=== PATIENT | male | born 1960 | race Caucasian/White ===

== ENCOUNTER 2018-09-26 17:18 | Emergency (ER) | payer SELFPAY ==
[2018-09-26 17:30] VITALS: BP 152/88; PULSE 32; RESP 18; TEMP 36.6; O2SAT 96; BMI 25.9
--- NOTE | 2018-09-26 17:39 | DI.CT.S_ITS ---
PROCEDURE: CT HEAD/BRAIN WO CON INDICATIONS: Left sided weakness TECHNIQUE: Noncontrast 4.5 mm thick angled axial sections acquired from the foramen magnum to the vertex, with coronal and sagittal reformats. For radiation dose reduction, the following was used: automated exposure control, adjustment of mA and/or kV according to patient size. COMPARISON: None. FINDINGS: Image quality: Excellent. CSF spaces: Basal cisterns are patent. No extra-axial fluid collections. The ventricles are symmetric in size and shape. Brain: No intracranial bleeds or masses. There is cerebral volume loss for age, with resultant ventricular and sulcal prominence. There are periventricular and deep white matter chronic small vessel ischemic changes. There is intracranial internal carotid artery atherosclerosis. Skull and face: Calvarium and visualized facial bones appear intact, without suspicious lesions. Sinuses: Visualized sinuses and mastoids are clear. IMPRESSION: Normal intracranial study for age, without findings of acute hemorrhage or bahman CT findings of early infarction. If there is strong clinical suspicion for an acute stroke, please consider an MRI for further evaluation, as it is more sensitive (assuming that there is no contraindication to MRI). Dictated by: Sukhjinder Dean M.D. on 09/26/2018 at 17:02 Approved by: Sukhjinder Dean M.D. on 09/26/2018 at 17:03
[2018-09-26 17:54] LABS: Prothrombin Time 11.9 SECONDS (10.1-12.7)
[2018-09-26] MEDS: SODIUM CHLORIDE 0.9% 1,000 ML 1000 ML IV (17:54)
[2018-09-26 17:57] LABS: Add Manual Diff / Slide Review NO; Basophils Absolute Auto 0 /uL (0-100); Basophils Percent Auto 0.8 % (0-2); Eosinophils Absolute Auto 100 /uL (0-450); Eosinophils Percent Auto 2.1 % (2-4); Hematocrit 41.4 % (41-53); Hemoglobin 14.2 g/dL (13.5-17.5); Lymphocytes Absolute Auto 1300 /uL (1100-4500); Lymphocytes Percent Auto 26.3 % (25-40); Mean Corpuscular HGB Conc 34.4 % (30-36); Mean Corpuscular Hemoglobin 31.3 PG (26-34); Monocytes Absolute Auto 500 /uL (0-900); Monocytes Percent Auto 9.1 % (3-14); Neutrophils Absolute Auto 3100 /uL (1500-7000); Neutrophils Percent Auto 61.7 % (50-75); Platelet Count 234 X10^3/uL (150-400); Red Blood Cell Count 4.54 X10^6/uL (4.5-5.9); Red Cell Distribution Width 13.8 % (11.6-14.8)
--- NOTE | 2018-09-26 17:57 | PC.NURSE ---
Patient has had 2 separate episodes of bradycardia, both accompanied by lightheadness and heart rate in the 20s. Returned to 60s-70s bpm after approx 10 seconds and symptoms resolved. Provider notified and cardiac monitoring strip obtained.
[2018-09-26 17:58] LABS: Alanine Aminotransferase 37 IU/L (21-72); Albumin Globulin Ratio 1.5 (1.0-2.8); Alkaline Phosphatase 80 U/L (38-126); Aspartate Aminotransferase 33 IU/L (17-59); BUN Creatinine Ratio 13.1 (6-22); Bilirubin Total 0.8 mg/dL (0.2-1.3); Blood Urea Nitrogen 17 mg/dL (9-20); Carbon Dioxide 29 mmol/L (22-32); Chloride 104 mmol/L (98-107); Estimated Glomerular Filt Rate 56.3 mL/min (>60); Globulin 2.7 g/dL (1.7-4.1); Glucose 131 mg/dL (80-110); HEMOLYSIS < 15 (0-50); Potassium 3.8 mmol/L (3.4-5.1); Sodium 138 mmol/L (137-145); Total Protein 6.7 g/dL (6.3-8.2)
[2018-09-26 18:00] VITALS: BP 148/84; PULSE 81; RESP 14; O2SAT 97
--- NOTE | 2018-09-26 18:26 | ED.NEUROSD ---
HPI - Neuro Symptoms/Deficit General Chief Complaint: Neuro Symptoms/Deficit Stated Complaint: weakness on his left side Time Seen by Provider: 09/26/18 17:35 Source: patient and family Mode of arrival: ambulatory Limitations: no limitations History of Present Illness HPI Narrative: 58-year-old male nonsmoker presents with a friend and a chief complaint of left-sided numbness and tingling for 1 hour prior to arrival. He denies any blurred vision or trouble with speech. He states that maybe more than a numbness his arm just felt weird. He presented here the under those circumstances. He denies any chest pain, palpitations or increased fatigue as of late. He denies any medications or herbal supplements. He denies street drugs or smoking. He has never had a similar set of circumstances before today. On Anticoagulants: No Related Data Home Medications Medication Instructions Recorded Confirmed No Known Home Medications 09/26/18 09/26/18 Allergies Allergy/AdvReac Type Severity Reaction Status Date / Time No Known Drug Allergies Allergy Verified 09/26/18 17:36 Review of Systems Constitutional Denies chills, Denies fever(s), Denies lethargy and Denies weakness Eyes Denies change in vision, Denies eye discharge, Denies irritation and Denies loss of vision ENT Ears, Nose, Mouth, and Throat: Denies change in voice, Denies neck pain and Denies sore throat Cardiovascular Denies chest pain, Denies irregular heart rhythm, Reports lightheadedness, Denies palpitations, Denies dyspnea, Denies dyspnea on exertion and Denies orthopnea Respiratory Denies cough, Denies dyspnea, Denies dyspnea on exertion and Denies wheezing Gastrointestinal Gastrointestinal: Denies abdominal pain, Denies change in bowel habits, Denies diarrhea, Denies nausea and Denies vomiting Genitourinary Denies hematuria, Denies flank pain, Denies urinary incontinence and Denies urinary urgency Musculoskeletal Denies neck pain Integumentary/Breasts Denies pruritus, Denies erythema, Denies rash and Denies wounds Neurologic Denies confusion, Denies loss of vision and Denies weakness Psychiatric Denies anxiety, Denies confusion, Denies depression, Denies homicidal ideation and Denies suicidal ideation Endocrine Denies palpitations Hematologic/Lymphatic Denies easy bruising Allergic/Immunologic Denies wheezing [facility] Social History Smoking Status: Never smoker Social History Smoking Status: Never smoker Exam Narrative Exam Narrative: GENERAL: This is a well-nourished, well-developed patient, in mild distress. HEAD: Atraumatic. Normocephalic. No temporal or scalp tenderness. EYES: Pupils equal round and reactive. Extraocular motions intact. No scleral icterus. No injection or drainage. ENT: Nose without bleeding, purulent drainage or septal hematoma. Throat without erythema, tonsillar hypertrophy or exudate. Uvula midline. Airway patent. NECK: Trachea midline. No JVD or lymphadenopathy. Supple, nontender, no meningeal signs. CARDIOVASCULAR: Regular rate and rhythm without murmurs, gallops, or rubs. RESPIRATORY: Clear to auscultation. Breath sounds equal bilaterally. No wheezes, rales, or rhonchi. GASTROINTESTINAL: Abdomen soft, non-tender, nondistended. No hepato-splenomegaly, or palpable masses. No guarding. EXTREMITIES: No clubbing, cyanosis, or edema. No joint tenderness, effusion, or edema noted. BACK: Nontender without deformity or crepitance. No flank tenderness. NEURO: AOx3. SKIN: No rash or erythema. NIH Stroke Scale 1a. LOC: Patient is alert and keenly responsive (0) 1b. LOC Questions: Patient answers both LOC questions accurately (0) 1c. LOC Commands: Patient performs both tasks correctly (0) 2. Best Gaze: Normal (0) 3. Visual: No visual loss (0) 4. Facial palsy: Normal symmetrical movements (0) 5. Motor arm: No drift (0) 6. Motor leg: No drift (0) 7. Limb ataxia: Absent (0) 8. Sensory: Normal (0) 9. Best language: No aphasia; normal (0) 10. Dysarthria: Normal (0) 11. Extinction and inattention: No abnormality (0) NIHSS: 0 Initial Vital Signs Initial Vital Signs: Vital Signs Temperature 97.8 F 09/26/18 17:30 Pulse Rate 32 L 09/26/18 17:30 Respiratory Rate 18 09/26/18 17:30 Blood Pressure 152/88 H 09/26/18 17:30 Pulse Oximetry 96 09/26/18 17:30 Course Course Narrative: Patient presented with left-sided numbness and tingling which had resolved prior to his arrival but since being here has had 2 near syncopal episodes which were unprovoked. Both of which occurred while he was laying on the cart and he was noted to have a sinus bradycardia, the 1st down to 37 and the 2nd at 27. Both episodes lasted less than 10 seconds did not require intervention Orders Ordered: ED Orders 09/26/18 17:30 Complete Blood Count AUTO DIFF Stat Comprehensive Metabolic Panel Stat Prothrombin Time INR Stat 09/26/18 17:39 CT head/brain wo con Stat 09/26/18 17:43 Urinalysis and Microscopic Stat 09/26/18 19:45 Troponin & CK Cardiac Panel Stat Dopamine HCl/Dextrose (Dopamine 400 Mg-D5w 250 Ml) 400 mg in 250 mls @ 19.561 mls/hr IV TITRATE PERRY; Protocol Last Titration: 09/26/18 19:36 Dose: 5 mcg/kg/min, 19.561 mls/hr Admin: 09/26/18 19:33 Dose: 5 mcg/kg/min, 19.561 mls/hr Discontinued Medications Sodium Chloride (Normal Saline 0.9%) 1,000 mls @ 1,000 mls/hr IV BOLUS ONE Stop: 09/26/18 18:42 Last Infusion: 09/26/18 18:57 Dose: 0 mls/hr Admin: 09/26/18 17:54 Dose: 1,000 mls/hr Consultations Consultation #1: call to Cardio at [facility]. She recommends transfer. She'd like me to talk to hospitalist and requests Dopamine drip at 5 during transfer. Patient has pads on and atropine is at bedside call to hospitalist whom is happy to accept Time: 18:44 Vital Signs - 8 hr 09/26/18 17:30 09/26/18 18:00 09/26/18 19:25 Temperature 97.8 F Pulse Rate 32 L 81 75 Respiratory Rate 18 14 16 Blood Pressure 152/88 H Blood Pressure [Left Arm] 148/84 H 156/83 H Pulse Oximetry 96 97 99 MDM - Neuro Symptoms/Deficit Lab Data Result diagrams: 09/26/18 17:30 09/26/18 17:30 Lab Results 09/26/18 09/26/18 09/26/18 Range/Units 17:30 17:30 17:30 WBC 5.0 (4.5-11.0) X10^3/uL RBC 4.54 (4.5-5.9) X10^6/uL Hgb 14.2 (13.5-17.5) g/dL Hct 41.4 (41-53) % MCV 91.0 (80-100) fL MCH 31.3 (26-34) PG MCHC 34.4 (30-36) % RDW 13.8 (11.6-14.8) % Plt Count 234 (150-400) X10^3/uL Neut % (Auto) 61.7 (50-75) % Lymph % (Auto) 26.3 (25-40) % [place] % (Auto) 9.1 (3-14) % Eos % (Auto) 2.1 (2-4) % Baso % (Auto) 0.8 (0-2) % Neut # (Auto) 3100 (5131-1499) /uL Lymph # (Auto) 1300 (1086-3557) /uL [place] # (Auto) 500 (0-900) /uL Eos # (Auto) 100 (0-450) /uL Baso # (Auto) 0 (0-100) /uL PT 11.9 (10.1-12.7) SECONDS INR 1.0 (0.9-1.3) Sodium 138 (137-145) mmol/L Potassium 3.8 (3.4-5.1) mmol/L Chloride 104 (98-107) mmol/L Carbon Dioxide 29 (22-32) mmol/L BUN 17 (9-20) mg/dL Creatinine 1.30 H (0.66-1.25) mg/dL Estimated GFR 56.3 L (>60) mL/min BUN/Creatinine Ratio 13.1 (6-22) Glucose 131 H (80-110) mg/dL Calcium 9.0 (8.4-10.2) mg/dL Total Bilirubin 0.8 (0.2-1.3) mg/dL AST 33 (17-59) IU/L ALT 37 (21-72) IU/L Alkaline Phosphatase 80 (38-126) U/L Total Protein 6.7 (6.3-8.2) g/dL Albumin 4.0 (3.5-5.0) g/dL Globulin 2.7 (1.7-4.1) g/dL Albumin/Globulin Ratio 1.5 (1.0-2.8) Urine Dip Bedside Urine Glucose Negative Bedside Urine Bilirubin - Negative Bedside Urine Ketone - Negative Urine Specific [place] 1.020 Bedside Urine Occult Blood - Negative Bedside Urine pH 7.0 Bedside Urine Protein - Negative Bedside Urine Urobilinogen +/- 1mg Bedside Urine Nitrite - Negative Bedside Urine Leukocytes - Negative Esterase Discharge Plan Departure Patient Disposition: [facility] Clinical Impression: Bradycardia Prescriptions: No Action No Known Home Medications RF: 0 Referrals: Osacr Cochran MD [Primary Care Provider] -
--- NOTE | 2018-09-26 18:30 | ED_ITS ---
HPI - Neuro Symptoms/Deficit General Chief Complaint: Neuro Symptoms/Deficit Stated Complaint: weakness on his left side Time Seen by Provider: 09/26/18 17:35 Source: patient and family Mode of arrival: ambulatory Limitations: no limitations History of Present Illness HPI Narrative: 58-year-old male nonsmoker presents with a friend and a chief complaint of left-sided numbness and tingling for 1 hour prior to arrival. He denies any blurred vision or trouble with speech. He states that maybe more than a numbness his arm just felt weird. He presented here the under those circumstances. He denies any chest pain, palpitations or increased fatigue as of late. He denies any medications or herbal supplements. He denies street drugs or smoking. He has never had a similar set of circumstances before today. On Anticoagulants: No Related Data Home Medications Medication Instructions Recorded Confirmed No Known Home Medications 09/26/18 09/26/18 Allergies Allergy/AdvReac Type Severity Reaction Status Date / Time No Known Drug Allergies Allergy Verified 09/26/18 17:36 Review of Systems Constitutional Denies chills, Denies fever(s), Denies lethargy and Denies weakness Eyes Denies change in vision, Denies eye discharge, Denies irritation and Denies loss of vision ENT Ears, Nose, Mouth, and Throat: Denies change in voice, Denies neck pain and Denies sore throat Cardiovascular Denies chest pain, Denies irregular heart rhythm, Reports lightheadedness, Denies palpitations, Denies dyspnea, Denies dyspnea on exertion and Denies orthopnea Respiratory Denies cough, Denies dyspnea, Denies dyspnea on exertion and Denies wheezing Gastrointestinal Gastrointestinal: Denies abdominal pain, Denies change in bowel habits, Denies diarrhea, Denies nausea and Denies vomiting Genitourinary Denies hematuria, Denies flank pain, Denies urinary incontinence and Denies urinary urgency Musculoskeletal Denies neck pain Integumentary/Breasts Denies pruritus, Denies erythema, Denies rash and Denies wounds Neurologic Denies confusion, Denies loss of vision and Denies weakness Psychiatric Denies anxiety, Denies confusion, Denies depression, Denies homicidal ideation and Denies suicidal ideation Endocrine Denies palpitations Hematologic/Lymphatic Denies easy bruising Allergic/Immunologic Denies wheezing [facility] Social History Smoking Status: Never smoker Social History Smoking Status: Never smoker Exam Narrative Exam Narrative: GENERAL: This is a well-nourished, well-developed patient, in mild distress. HEAD: Atraumatic. Normocephalic. No temporal or scalp tenderness. EYES: Pupils equal round and reactive. Extraocular motions intact. No scleral icterus. No injection or drainage. ENT: Nose without bleeding, purulent drainage or septal hematoma. Throat without erythema, tonsillar hypertrophy or exudate. Uvula midline. Airway patent. NECK: Trachea midline. No JVD or lymphadenopathy. Supple, nontender, no meningeal signs. CARDIOVASCULAR: Regular rate and rhythm without murmurs, gallops, or rubs. RESPIRATORY: Clear to auscultation. Breath sounds equal bilaterally. No wheezes, rales, or rhonchi. GASTROINTESTINAL: Abdomen soft, non-tender, nondistended. No hepato- splenomegaly, or palpable masses. No guarding. EXTREMITIES: No clubbing, cyanosis, or edema. No joint tenderness, effusion, or edema noted. BACK: Nontender without deformity or crepitance. No flank tenderness. NEURO: AOx3. SKIN: No rash or erythema. NIH Stroke Scale 1a. LOC: Patient is alert and keenly responsive (0) 1b. LOC Questions: Patient answers both LOC questions accurately (0) 1c. LOC Commands: Patient performs both tasks correctly (0) 2. Best Gaze: Normal (0) 3. Visual: No visual loss (0) 4. Facial palsy: Normal symmetrical movements (0) 5. Motor arm: No drift (0) 6. Motor leg: No drift (0) 7. Limb ataxia: Absent (0) 8. Sensory: Normal (0) 9. Best language: No aphasia; normal (0) 10. Dysarthria: Normal (0) 11. Extinction and inattention: No abnormality (0) NIHSS: 0 Initial Vital Signs Initial Vital Signs: Vital Signs Temperature 97.8 F 09/26/18 17:30 Pulse Rate 32 L 09/26/18 17:30 Respiratory Rate 18 09/26/18 17:30 Blood Pressure 152/88 H 09/26/18 17:30 Pulse Oximetry 96 09/26/18 17:30 Course Course Narrative: Patient presented with left-sided numbness and tingling which had resolved prior to his arrival but since being here has had 2 near syncopal episodes which were unprovoked. Both of which occurred while he was laying on the cart and he was noted to have a sinus bradycardia, the 1st down to 37 and the 2nd at 27. Both episodes lasted less than 10 seconds did not require intervention Orders Ordered: ED Orders 09/26/18 17:30 Complete Blood Count AUTO DIFF Stat Comprehensive Metabolic Panel Stat Prothrombin Time INR Stat 09/26/18 17:39 CT head/brain wo con Stat 09/26/18 17:43 Urinalysis and Microscopic Stat 09/26/18 19:45 Troponin & CK Cardiac Panel Stat Dopamine HCl/Dextrose (Dopamine 400 Mg-D5w 250 Ml) 400 mg in 250 mls @ 19.561 mls/hr IV TITRATE PERRY; Protocol Last Titration: 09/26/18 19:36 Dose: 5 mcg/kg/min, 19.561 mls/hr Admin: 09/26/18 19:33 Dose: 5 mcg/kg/min, 19.561 mls/hr Discontinued Medications Sodium Chloride (Normal Saline 0.9%) 1,000 mls @ 1,000 mls/hr IV BOLUS ONE Stop: 09/26/18 18:42 Last Infusion: 09/26/18 18:57 Dose: 0 mls/hr Admin: 09/26/18 17:54 Dose: 1,000 mls/hr Consultations Consultation #1: call to Cardio at [facility]. She recommends transfer. She'd like me to talk to hospitalist and requests Dopamine drip at 5 during transfer. Patient has pads on and atropine is at bedside call to hospitalist whom is happy to accept Time: 18:44 Vital Signs - 8 hr 09/26/18 17:30 09/26/18 18:00 09/26/18 19:25 Temperature 97.8 F Pulse Rate 32 L 81 75 Respiratory Rate 18 14 16 Blood Pressure 152/88 H Blood Pressure [Left Arm] 148/84 H 156/83 H Pulse Oximetry 96 97 99 MDM - Neuro Symptoms/Deficit Lab Data Result diagrams: 09/26/18 17:30 09/26/18 17:30 Lab Results 09/26/18 09/26/18 09/26/18 Range/Units 17:30 17:30 17:30 WBC 5.0 (4.5-11.0) X10^3/uL RBC 4.54 (4.5-5.9) X10^6/uL Hgb 14.2 (13.5-17.5) g/dL Hct 41.4 (41-53) % MCV 91.0 (80-100) fL MCH 31.3 (26-34) PG MCHC 34.4 (30-36) % RDW 13.8 (11.6-14.8) % Plt Count 234 (150-400) X10^3/uL Neut % (Auto) 61.7 (50-75) % Lymph % (Auto) 26.3 (25-40) % [place] % (Auto) 9.1 (3-14) % Eos % (Auto) 2.1 (2-4) % Baso % (Auto) 0.8 (0-2) % Neut # (Auto) 3100 (2591-2328) /uL Lymph # (Auto) 1300 (0948-6968) /uL [place] # (Auto) 500 (0-900) /uL Eos # (Auto) 100 (0-450) /uL Baso # (Auto) 0 (0-100) /uL PT 11.9 (10.1-12.7) SECONDS INR 1.0 (0.9-1.3) Sodium 138 (137-145) mmol/L Potassium 3.8 (3.4-5.1) mmol/L Chloride 104 (98-107) mmol/L Carbon Dioxide 29 (22-32) mmol/L BUN 17 (9-20) mg/dL Creatinine 1.30 H (0.66-1.25) mg/dL Estimated GFR 56.3 L (>60) mL/min BUN/Creatinine Ratio 13.1 (6-22) Glucose 131 H (80-110) mg/dL Calcium 9.0 (8.4-10.2) mg/dL Total Bilirubin 0.8 (0.2-1.3) mg/dL AST 33 (17-59) IU/L ALT 37 (21-72) IU/L Alkaline Phosphatase 80 (38-126) U/L Total Protein 6.7 (6.3-8.2) g/dL Albumin 4.0 (3.5-5.0) g/dL Globulin 2.7 (1.7-4.1) g/dL Albumin/Globulin Ratio 1.5 (1.0-2.8) Urine Dip Bedside Urine Glucose Negative Bedside Urine Bilirubin - Negative Bedside Urine Ketone - Negative Urine Specific [place] 1.020 Bedside Urine Occult Blood - Negative Bedside Urine pH 7.0 Bedside Urine Protein - Negative Bedside Urine Urobilinogen +/- 1mg Bedside Urine Nitrite - Negative Bedside Urine Leukocytes - Negative Esterase Discharge Plan Departure Patient Disposition: [facility] Clinical Impression: Bradycardia Prescriptions: No Action No Known Home Medications RF: 0 Referrals: Oscar Cochran MD [Primary Care Provider] -
[2018-09-26 19:25] VITALS: BP 156/83; PULSE 75; RESP 16; O2SAT 99
[2018-09-26] MEDS: DOPAMINE HCL IN DEXTROSE 5 % 400 MG/250 ML PLAST..BAG 19.561 MG IV (19:33)
[2018-09-26 20:00] VITALS: BP 147/83; PULSE 88; RESP 16; O2SAT 98
[2018-09-26 20:00] LABS: Creatine Kinase 127 U/L (55-170)
[2018-09-26 20:12] LABS: Troponin I < 0.012 ng/mL (0.01-0.034)
[2018-09-26 20:15] LABS: CKMB % Relative Index 1.5 % (1.5-5.0); Creatine Kinase MB 1.91 ng/mL (<2.37)
== END 2018-09-26 20:43 | disposition short-term general hospital (02) ==
PROVIDERS: Emergency Medicine; Emergency Provider Emergency Medicine; Family Provider Family Medicine; PCP Family Medicine
DX: R00.1 Bradycardia, unspecified (principal); R55 Syncope and collapse
CPT/HCPCS: 36591; 70450; 80053; 81003; 82550; 82553; 84484; 85025; 85610; 93005; 96361; 96365; 99285